=== PATIENT | male | born 1960 | race Caucasian/White ===

== ENCOUNTER 2020-10-02 08:59 | Emergency (ER) | payer BC ==
[~2020-10-02] VITALS: Ht 177.8 cm; Wt 82.3 kg
[2020-10-02 09:06] VITALS: BP 122/79
[2020-10-02] MEDS ORDERED: PROPARACAINE HCL 0.5% 15 ML OPHTHALMIC SOLUTION OD ONE (09:15)
[2020-10-02] MEDS ORDERED: FLUORESCEIN SODIUM 1 MG STRIP OD ONE (09:15)
[2020-10-02] MEDS ORDERED: POLYMYXIN B/TRIMETHOPRIM 10 ML OPHTHALMIC SOLUTION OD ONE (09:30)
== END 2020-10-02 11:03 | disposition home or self-care (01) ==
LOC: EMS 08:59
DX: H10.9 Unspecified conjunctivitis (principal)
CPT/HCPCS: 99284; Z7502; Z7610

== ENCOUNTER → 2022-11-28 | Outpatient (CLI) | payer BC | END | disposition home or self-care (01) | LOC: RADPV 09:56 | PROVIDERS: ATTEND Internal Medicine Cardiovascular Disease | DX: I08.0 Rheumatic disorders of both mitral and aortic valves (principal); I50.1 Left ventricular failure, unspecified | CPT/HCPCS: 93306 ==